=== PATIENT | male | born 1960 | race Caucasian/White ===

== ENCOUNTER 2016-06-16 10:24 | Emergency (ER) | payer MEDICARE, MEDICAID ==
[~2016-06-16] VITALS: Ht 190.5 cm; Wt 87.5 kg
[~2016-06-16 10:24] MED LIST: CLARITIN10 MG PO; Motrin,Rufen800 MG PO; SINGULAIR10 M1 PO; TRICOR48 MG PO; VITAMIN D32000 UNI1 PO
== END 2016-06-16 12:09 | disposition home or self-care (01) ==
LOC: ED 10:24
DX: L25.5 Unspecified contact dermatitis due to plants, except food (principal)

== ENCOUNTER 2016-09-20 19:00 | Emergency (ER) | payer MEDICARE, MEDICAID ==
[~2016-09-20] VITALS: Ht 190.5 cm; Wt 87.5 kg
[2016-09-20] MEDS ORDERED: IBU800 MG PO (19:19)
== END 2016-09-20 19:28 | disposition home or self-care (01) ==
LOC: ED 19:00
DX: M25.561 Pain in right knee (principal); Z79.899 Other long term (current) drug therapy; W22.8XXA Striking against or struck by other objects, initial encounter; Y93.89 Activity, other specified; Y92.89 Other specified places as the place of occurrence of the external cause; Y99.9 Unspecified external cause status

== ENCOUNTER → 2018-04-27 | Outpatient (CLI) | payer MEDICARE, OTHER ==
[~2018-04-27] MED LIST changes: +IBU800 MG PO
== END | disposition home or self-care (01) ==
LOC: RAD 13:43
DX: M85.88 Other specified disorders of bone density and structure, other site (principal); M51.36 Other intervertebral disc degeneration, lumbar region

== ENCOUNTER → 2018-07-05 | Outpatient (CLI) | payer MEDICARE, OTHER | END | disposition home or self-care (01) | LOC: US 14:00 | DX: N18.3 Chronic kidney disease, stage 3 (moderate) (principal) ==

== ENCOUNTER 2018-12-20 10:48 | Emergency (ER) | payer MEDICARE, OTHER ==
[~2018-12-20] VITALS: Ht 190.5 cm; Wt 84.8 kg
[2018-12-20] MEDS ORDERED: VOLTAREN100 GM T (12:36)
[2018-12-20] MEDS ORDERED: ROBAXIN-750750 MG PO (12:42)
== END 2018-12-20 12:50 | disposition home or self-care (01) ==
LOC: ED 10:48
DX: S39.012A Strain of muscle, fascia and tendon of lower back, initial encounter (principal); M25.551 Pain in right hip; Z91.048 Other nonmedicinal substance allergy status; Z79.899 Other long term (current) drug therapy; W01.198A Fall on same level from slipping, tripping and stumbling with subsequent striking against other object, initial encounter; Y93.89 Activity, other specified; Y92.098 Other place in other non-institutional residence as the place of occurrence of the external cause; Y99.8 Other external cause status

== ENCOUNTER 2021-04-24 07:36 | Emergency (ER) | payer OTHER ==
[~2021-04-24] VITALS: Wt 83.9 kg
[~2021-04-24 07:36] MED LIST changes: +ROBAXIN-750750 MG PO; +VOLTAREN100 GM T
== END 2021-04-24 10:45 | disposition home or self-care (01) ==
LOC: ED 07:36
DX: K94.23 Gastrostomy malfunction (principal); Z79.899 Other long term (current) drug therapy

== ENCOUNTER → 2021-06-07 | Outpatient (CLI) | payer OTHER ==
[~2021-06-07] MED LIST changes: +DEPAKOTE125 MG PO; +DILTIAZEM HCL60 MG PEG; +DULOXETINE HCL30 MG PEG; +ELIQUIS5 M1 PEG; +PREGABALIN150 MG PEG; +SINGULAIR10 M1 PEG; -SINGULAIR10 M1 PO; +TRAZODONE50 MG PEG; +TRICOR48 MG PEG; -TRICOR48 MG PO; -VITAMIN D32000 UNI1 PO; +VITAMIN D350 MC2 PEG
== END | disposition home or self-care (01) ==
LOC: CT 00:55
PROVIDERS: ATTEND Internal Medicine
DX: J98.11 Atelectasis (principal); R22.1 Localized swelling, mass and lump, neck

== ENCOUNTER → 2021-08-12 | Day surgery (SDC) | payer OTHER ==
[~2021-08-12] VITALS: Ht 190.5 cm; Wt 87.1 kg
[2021-08-12 09:38] VITALS: BP 137/86
[2021-08-12 10:41] VITALS: BP 116/80
[2021-08-12 10:55] VITALS: BP 117/78
[2021-08-12 11:11] VITALS: BP 128/84
[2021-08-12 11:26] VITALS: BP 128/80
[2021-08-12 11:38] VITALS: BP 131/85
== END | disposition home or self-care (01) ==
LOC: SDC 08-09 13:15
PROVIDERS: ATTEND Specialist
DX: J38.01 Paralysis of vocal cords and larynx, unilateral (principal); Z87.891 Personal history of nicotine dependence

== ENCOUNTER 2021-09-10 15:08 | Inpatient (IN) | payer OTHER ==
[~2021-09-10] VITALS: Ht 190.5 cm; Wt 89.4 kg
[2021-09-10 15:17] VITALS: BP 150/106
[2021-09-10 15:53] LABS: BILIRUBIN Negative (Negative); BLOOD Negative (Negative); CLARITY Turbid (Clear); COLOR Yellow (Yellow); GLUCOSE Negative (Negative); KETONE Negative (Negative); LEUKO ESTERASE Negative (Negative); NITRITE Negative (Negative); SPECIFIC GRAVITY 1.015 (1.001-1.030); UROBILINOGEN 0.2 E.U./dl (0.0-1.0)
[2021-09-10 16:00] LABS: BASO % 0.4 % (0.0-1.0); EOS # 0.1 10*3/uL (0.0-0.4); EOS % 1.3 % (1.0-4.0); HEMATOCRIT 41.6 % (42.0-52.0); LYMPH % 14.2 % (27.0-41.0); MEAN CELL VOLUME 92.2 fl (80.0-94.0); MEAN CORPUSCULAR HGB 30.4 pg (27.0-31.0); MEAN CORPUSCULAR HGB CONC 32.9 g/dl (33.0-37.0); MEAN PLATELET VOLUME 10.5 fl (9.6-12.3); MONO # 0.7 10*3/uL (0.1-1.0); MONO % 9.3 % (3.0-9.0); NEUT # 5.4 10*3/uL (2.3-7.9); NEUT % 74.7 % (47.0-73.0); PLATELET COUNT AUTOMATED 281 10*3/uL (130-400); RED BLOOD COUNT 4.51 10*6/uL (4.50-5.90); RED CELL DISTRI WIDTH 13.3 % (0-14.5); WHITE BLOOD COUNT 7.2 10*3/uL (4.8-10.8)
[2021-09-10 16:02] LABS: URINE AMPHETAMINES < 1000 (1000ng/ml); URINE BARBITURATES < 200 (200ng/ml); URINE BENZODIAZEPINES < 200 (200ng/ml); URINE CANNABINOIDS (THC) > 50 (50ng/ml); URINE COCAINE < 300 (300ng/ml); URINE METHADONE < 300 (300ng/ml); URINE OPIATES < 300 (300ng/ml)
[2021-09-10 16:03] LABS: URINE PHENCYCLIDINE < 25 (25ng/ml)
[2021-09-10 16:04] LABS: WBC 0-2 wbc/hpf (0-5)
[2021-09-10 16:05] LABS: BACTERIA TRACE
[2021-09-10 16:10] LABS: ACT PARTIAL THROMBO TIME 32.4 SECONDS (20.0-32.1)
[2021-09-10 16:16] LABS: ALKALINE PHOSPHATASE 40 U/L (45-117); BUN 17 mg/dl (7-24); CHLORIDE 112 mmol/L (98-107); CREATININE 1.32 mg/dL (0.70-1.30); LIPASE 199 U/L (73-393); POTASSIUM 4.4 mmol/L (3.5-5.1); SGOT/AST 15 IU/L (3-35); SGPT/ALT 19 U/L (12-78); SODIUM 142 mmol/L (136-145)
[2021-09-10 16:17] LABS: ACETAMINOPHEN (TYLENOL) < 5.0 ug/ml (10-30); ETHYL ALCOHOL < 3.0 mg/dl (<3)
[2021-09-10 19:27] VITALS: BP 137/98
[2021-09-10] MEDS ORDERED: PANTOPRAZOLE SO40 MG PO (19:29)
[2021-09-10] MEDS ORDERED: TOPIRAMATE50 M2 PO (19:31)
[2021-09-10] MEDS ORDERED: AMIODARONE HYD200 MG PO (19:32)
[2021-09-10 20:15] VITALS: BP 139/90
[2021-09-10] MEDS ORDERED: 24 HOUR ALLER15.8 ML NAS (20:54)
[2021-09-10] MEDS ORDERED: XYLOCAINE 5%35.44 GM T (20:56)
[2021-09-11] VITALS: BP 136/82
[2021-09-11 06:27] LABS: BASO % 0.5 % (0.0-1.0); EOS # 0.3 10*3/uL (0.0-0.4); EOS % 4.9 % (1.0-4.0); HEMATOCRIT 41.7 % (42.0-52.0); LYMPH # 1.2 10*3/uL (1.3-4.4); LYMPH % 20.9 % (27.0-41.0); MEAN CELL VOLUME 91.6 fl (80.0-94.0); MEAN CORPUSCULAR HGB 30.1 pg (27.0-31.0); MEAN CORPUSCULAR HGB CONC 32.9 g/dl (33.0-37.0); MEAN PLATELET VOLUME 10.9 fl (9.6-12.3); MONO # 0.8 10*3/uL (0.1-1.0); MONO % 13.2 % (3.0-9.0); NEUT # 3.6 10*3/uL (2.3-7.9); NEUT % 60.3 % (47.0-73.0); PLATELET COUNT AUTOMATED 266 10*3/uL (130-400); RED BLOOD COUNT 4.55 10*6/uL (4.50-5.90); RED CELL DISTRI WIDTH 13.2 % (0-14.5); WHITE BLOOD COUNT 5.9 10*3/uL (4.8-10.8)
[2021-09-11 06:40] LABS: ALKALINE PHOSPHATASE 35 U/L (45-117); BUN 18 mg/dl (7-24); CHLORIDE 113 mmol/L (98-107); CREATININE 1.35 mg/dL (0.70-1.30); POTASSIUM 4.4 mmol/L (3.5-5.1); SGOT/AST 11 IU/L (3-35); SGPT/ALT 17 U/L (12-78); SODIUM 142 mmol/L (136-145); TOTAL PROTEIN 6.6 gm/dL (6.4-8.2)
[2021-09-11 16:00] VITALS: BP 115/72
[2021-09-11 20:00] VITALS: BP 133/89
[2021-09-12] VITALS: BP 141/92
[2021-09-12 06:36] LABS: BUN 15 mg/dl (7-24); CHLORIDE 111 mmol/L (98-107); CREATININE 1.21 mg/dL (0.70-1.30); POTASSIUM 4.1 mmol/L (3.5-5.1); SODIUM 141 mmol/L (136-145)
[2021-09-12 08:00] VITALS: BP 150/84
[2021-09-12 12:00] VITALS: BP 138/86
[2021-09-12 16:00] VITALS: BP 129/77
[2021-09-12 20:00] VITALS: BP 153/94
[2021-09-13] VITALS: BP 135/88
[2021-09-13 08:00] VITALS: BP 139/85
[2021-09-13 08:55] LABS: BASO % 0.2 % (0.0-1.0); EOS # 0.2 10*3/uL (0.0-0.4); EOS % 3.4 % (1.0-4.0); HEMATOCRIT 44.1 % (42.0-52.0); LYMPH # 1.1 10*3/uL (1.3-4.4); LYMPH % 19.4 % (27.0-41.0); MEAN CORPUSCULAR HGB 30.2 pg (27.0-31.0); MEAN CORPUSCULAR HGB CONC 32.4 g/dl (33.0-37.0); MEAN PLATELET VOLUME 10.6 fl (9.6-12.3); MONO # 0.5 10*3/uL (0.1-1.0); MONO % 9.4 % (3.0-9.0); NEUT # 3.7 10*3/uL (2.3-7.9); NEUT % 67.4 % (47.0-73.0); PLATELET COUNT AUTOMATED 267 10*3/uL (130-400); RED BLOOD COUNT 4.74 10*6/uL (4.50-5.90); RED CELL DISTRI WIDTH 12.9 % (0-14.5); WHITE BLOOD COUNT 5.5 10*3/uL (4.8-10.8)
[2021-09-13 09:10] LABS: BUN 13 mg/dl (7-24); CHLORIDE 111 mmol/L (98-107); CREATININE 1.12 mg/dL (0.70-1.30); SODIUM 141 mmol/L (136-145)
[2021-09-13] MEDS ORDERED: CARBATROL300 MG PO (13:01)
== END 2021-09-13 14:30 | disposition home health service (06) | DRG 74 ==
LOC: ED 15:08 → 4E 18:38 → EDHOLD 18:38 → 4E 19:33
PROVIDERS: Emergency Medicine; ADMIT Internal Medicine; ATTEND Internal Medicine
DX: G50.0 Trigeminal neuralgia (principal); G11.9 Hereditary ataxia, unspecified; N17.9 Acute kidney failure, unspecified; R39.2 Extrarenal uremia; Z20.822 Contact with and (suspected) exposure to COVID-19; F43.21 Adjustment disorder with depressed mood; G43.909 Migraine, unspecified, not intractable, without status migrainosus; I69.391 Dysphagia following cerebral infarction; Z80.9 Family history of malignant neoplasm, unspecified; Z93.1 Gastrostomy status

== ENCOUNTER → 2022-01-08 | Outpatient (CLI) | payer OTHER ==
[~2022-01-08] MED LIST changes: +24 HOUR ALLER15.8 ML NAS; +AMIODARONE HYD200 MG PO; +CARBATROL300 MG PO; +PANTOPRAZOLE SO40 MG PO; +TOPIRAMATE50 M2 PO; +XYLOCAINE 5%35.44 GM T
== END | disposition home or self-care (01) ==
LOC: RAD/SH 09:00
PROVIDERS: ATTEND Nurse Practitioner Family
DX: R13.13 Dysphagia, pharyngeal phase (principal); Z93.1 Gastrostomy status

== ENCOUNTER → 2022-01-28 | Outpatient (CLI) | payer OTHER | END | disposition home or self-care (01) | LOC: RAD 16:20 | PROVIDERS: ATTEND Specialist | DX: G89.29 Other chronic pain (principal) ==

== ENCOUNTER → 2022-02-26 | Outpatient (CLI) | payer OTHER | END | disposition home or self-care (01) | LOC: CT 02-21 10:00 | PROVIDERS: ATTEND Specialist | DX: G93.89 Other specified disorders of brain (principal); I67.1 Cerebral aneurysm, nonruptured ==

== ENCOUNTER → 2022-04-04 | Outpatient (CLI) | payer OTHER | END | disposition home or self-care (01) | LOC: US 01:03 | PROVIDERS: ATTEND Nurse Practitioner Family | DX: R10.33 Periumbilical pain (principal) ==

== ENCOUNTER → 2022-05-13 | Outpatient (CLI) | payer OTHER | END | disposition home or self-care (01) | LOC: CT 00:26 | PROVIDERS: ATTEND Specialist | DX: M26.622 Arthralgia of left temporomandibular joint (principal); H92.09 Otalgia, unspecified ear; Z87.39 Personal history of other diseases of the musculoskeletal system and connective tissue ==

== ENCOUNTER → 2023-07-25 | Outpatient (CLI) | payer OTHER, MEDICAID ==
[2023-07-25 09:45] LABS: BASO % 0.4 % (0.0-1.0); EOS # 0.1 10*3/uL (0.0-0.4); EOS % 1.6 % (1.0-4.0); HEMATOCRIT 49.5 % (42.0-52.0); LYMPH # 1.7 10*3/uL (1.3-4.4); LYMPH % 19.7 % (27.0-41.0); MEAN CELL VOLUME 91.3 fl (80.0-94.0); MEAN CORPUSCULAR HGB 29.7 pg (27.0-31.0); MEAN CORPUSCULAR HGB CONC 32.5 g/dl (33.0-37.0); MEAN PLATELET VOLUME 10.7 fl (9.6-12.3); MONO % 11.6 % (3.0-9.0); NEUT # 5.7 10*3/uL (2.3-7.9); NEUT % 66.3 % (47.0-73.0); PLATELET COUNT AUTOMATED 265 10*3/uL (130-400); RED BLOOD COUNT 5.42 10*6/uL (4.50-5.90); RED CELL DISTRI WIDTH 12.6 % (0-14.5); WHITE BLOOD COUNT 8.5 10*3/uL (4.8-10.8)
[2023-07-25 09:48] LABS: BILIRUBIN Negative (Negative); BLOOD Negative (Negative); CLARITY Clear (Clear); COLOR Yellow (Yellow); GLUCOSE Negative (Negative); KETONE Trace (Negative); LEUKO ESTERASE Negative (Negative); NITRITE Negative (Negative); PH 6.5 (4.5-8.0); SPECIFIC GRAVITY 1.025 (1.001-1.030)
[2023-07-25 10:09] LABS: ALKALINE PHOSPHATASE 61 U/L (46-116); BUN 13 mg/dl (9-23); CHLORIDE 105 mmol/L (98-107); POTASSIUM 4.9 mmol/L (3.4-5.1); SGPT/ALT 32 U/L (5-49)
[2023-07-25 10:55] LABS: WBC 0-2 wbc/hpf (0-5)
[2023-07-25 10:56] LABS: MUCOUS 1+
== END | disposition home or self-care (01) ==
LOC: LAB 08:57
PROVIDERS: ATTEND Urology
DX: R97.20 Elevated prostate specific antigen [PSA] (principal); R35.0 Frequency of micturition; R39.15 Urgency of urination

== ENCOUNTER → 2023-09-12 | Outpatient (CLI) | payer OTHER, MEDICAID ==
[2023-09-12 07:45] LABS: BASO % 0.3 % (0.0-1.0); EOS # 0.3 10*3/uL (0.0-0.4); EOS % 3.9 % (1.0-4.0); HEMATOCRIT 47.6 % (42.0-52.0); LYMPH # 1.5 10*3/uL (1.3-4.4); LYMPH % 20.4 % (27.0-41.0); MEAN CELL VOLUME 89.6 fl (80.0-94.0); MEAN CORPUSCULAR HGB 30.3 pg (27.0-31.0); MEAN CORPUSCULAR HGB CONC 33.8 g/dl (33.0-37.0); MEAN PLATELET VOLUME 10.2 fl (9.6-12.3); MONO # 0.7 10*3/uL (0.1-1.0); MONO % 9.9 % (3.0-9.0); NEUT # 4.7 10*3/uL (2.3-7.9); NEUT % 65.2 % (47.0-73.0); PLATELET COUNT AUTOMATED 250 10*3/uL (130-400); RED BLOOD COUNT 5.31 10*6/uL (4.50-5.90); RED CELL DISTRI WIDTH 13.5 % (0-14.5); WHITE BLOOD COUNT 7.2 10*3/uL (4.8-10.8)
[2023-09-12 08:00] LABS: ACT PARTIAL THROMBO TIME 29.6 SECONDS (20.0-32.1)
[2023-09-12 08:21] LABS: ALKALINE PHOSPHATASE 62 U/L (46-116); BUN 10 mg/dl (9-23); CHLORIDE 106 mmol/L (98-107); LDH 153 U/L (120-246); POTASSIUM 4.3 mmol/L (3.4-5.1); SGPT/ALT 24 U/L (5-49); TOTAL PROTEIN 6.6 gm/dL (6.0-8.0)
[2023-09-12 08:34] LABS: BETA-HCG, QUANT < 3.0 mIU/mL (3)
== END | disposition home or self-care (01) ==
LOC: LAB 01:13
PROVIDERS: ATTEND Urology
DX: Z01.812 Encounter for preprocedural laboratory examination (principal); N50.89 Other specified disorders of the male genital organs; I63.9 Cerebral infarction, unspecified

== ENCOUNTER → 2023-09-28 | Outpatient (CLI) | payer OTHER, MEDICAID ==
[2023-09-28 08:01] LABS: LDH 128 U/L (120-246)
[2023-09-28 08:04] LABS: BETA-HCG, TUMOR MARKER < 3.0 mIU/mL (0-3)
== END | disposition home or self-care (01) ==
LOC: LAB 01:10
PROVIDERS: ATTEND Urology
DX: D29.20 Benign neoplasm of unspecified testis (principal)

== ENCOUNTER → 2023-09-30 | Outpatient (CLI) | payer OTHER, MEDICAID | END | disposition home or self-care (01) | LOC: US 00:49 | PROVIDERS: ATTEND Urology | DX: N43.3 Hydrocele, unspecified (principal); D29.20 Benign neoplasm of unspecified testis ==

== ENCOUNTER → 2023-10-26 | Outpatient (CLI) | payer OTHER, MEDICAID ==
[~2023-10-26] MED LIST changes: +IOHEXOL 350 MG/ML 100 ML VIAL IV ONE
[2023-10-26 09:54] LABS: BASO % 0.4 % (0.0-1.0); EOS # 0.2 10*3/uL (0.0-0.4); EOS % 2.3 % (1.0-4.0); HEMATOCRIT 46.4 % (42.0-52.0); LYMPH # 1.4 10*3/uL (1.3-4.4); LYMPH % 20.4 % (27.0-41.0); MEAN CELL VOLUME 89.9 fl (80.0-94.0); MEAN CORPUSCULAR HGB CONC 33.4 g/dl (33.0-37.0); MEAN PLATELET VOLUME 10.2 fl (9.6-12.3); MONO # 0.8 10*3/uL (0.1-1.0); MONO % 11.9 % (3.0-9.0); NEUT # 4.4 10*3/uL (2.3-7.9); NEUT % 64.7 % (47.0-73.0); PLATELET COUNT AUTOMATED 237 10*3/uL (130-400); RED BLOOD COUNT 5.16 10*6/uL (4.50-5.90); RED CELL DISTRI WIDTH 13.1 % (0-14.5); WHITE BLOOD COUNT 6.8 10*3/uL (4.8-10.8)
[2023-10-26 10:17] LABS: ALKALINE PHOSPHATASE 53 U/L (46-116); BUN 13 mg/dl (9-23); CHLORIDE 104 mmol/L (98-107); POTASSIUM 4.6 mmol/L (3.4-5.1); SGPT/ALT 26 U/L (5-49); TOTAL PROTEIN 6.5 gm/dL (6.0-8.0)
== END | disposition home or self-care (01) ==
LOC: LAB 00:13 → CT 09:00
PROVIDERS: ATTEND Urology
DX: Z12.5 Encounter for screening for malignant neoplasm of prostate (principal); K76.0 Fatty (change of) liver, not elsewhere classified; R31.9 Hematuria, unspecified

== ENCOUNTER → 2023-12-01 | Outpatient (CLI) | payer OTHER, MEDICAID ==
[~2023-12-01] MED LIST changes: -IOHEXOL 350 MG/ML 100 ML VIAL IV ONE
== END | disposition home or self-care (01) ==
LOC: LAB 08:18
PROVIDERS: ATTEND Urology
DX: R97.20 Elevated prostate specific antigen [PSA] (principal); R53.83 Other fatigue